=== PATIENT | female | born 1995 | race Hispanic/Latino ===

== ENCOUNTER 2024-10-05 22:16 | Emergency (ER) | payer OTHER ==
[2024-10-05] MEDS ORDERED: Acetaminophen 325 MG TAB ONE (22:29)
== END 2024-10-05 23:50 | disposition home or self-care (01) ==
LOC: CSHERS 22:16
DX: M25.561 Pain in right knee (principal); X50.1XXA Overexertion from prolonged static or awkward postures, initial encounter

== ENCOUNTER 2024-10-14 18:00 | Inpatient (IN) | payer OTHER ==
[2024-10-15] MEDS: Lactated Ringer's 1,000 ML IV SCH (07:30)
[2024-10-15] MEDS ORDERED: Misoprostol 200 MCG TAB PR PRN (07:45)
[2024-10-15] MEDS ORDERED: Ondansetron PF 4 MG/2 ML Vial IVP PRN ×2 (07:45→18:53)
[2024-10-15] MEDS ORDERED: Methylergonovine 0.2 MG/ML VIAL IM PRN (07:45)
[2024-10-15] MEDS ORDERED: Carboprost 250 MCG/ML AMP IM PRN (07:45)
[2024-10-15] MEDS ORDERED: hydrALAZINE 20 MG/ML VIAL SLOW IVP PRN (07:45)
[2024-10-15] MEDS ORDERED: Tranexamic Acid 1,000 MG/10 ML VIAL IVP PRN (07:45)
[2024-10-15] MEDS ORDERED: Diphenoxylate HCl/Atropine Tablet PO PRN (07:45)
[2024-10-15] MEDS ORDERED: Promethazine HCl 25 MG/ML VIAL IM PRN ×2 (07:45→18:53)
[2024-10-15 08:01] VITALS: BMI 30.6
[2024-10-15 08:09] LABS: Hematocrit 31.7 % (34.9-44.5); Hemoglobin 9.9 g/dL (12.0-15.5); Mean Corpuscular HGB CONC 31.2 g/dL (32.0-36.0); Mean Corpuscular Hemoglobin 27.3 pg (27.0-33.0); Mean Corpuscular Volume 87.6 fL (81.6-98.3); Mean Platelet Volume 12.9 fL (7.4-10.4); Platelet Count 150 10x3/uL (150-450); RBC Distribution Width 13.8 % (11.5-14.5); Red Blood Cell (RBC) Count 3.62 10x6/uL (3.90-5.03); White Blood Cell (WBC) Count 7.6 10x3/uL (3.5-10.5)
[2024-10-15 08:43] LABS: HBsAg Index 0.21 S/CO (0-0.99); Hep B Surf Ag - L&D Non-Reactive S/CO (NonReactive)
[2024-10-15 08:45] LABS: Syphilis Antibody Nonreactive (Nonreactive); Syphilis Antibody Index 0.04 S/CO (<1.00 Non-Reactive)
[2024-10-15] MEDS: Misoprostol 100 MCG TAB VAG SCH (09:13)
[2024-10-15] MEDS ORDERED: Lidocaine 1% (PF) 30 ML VIAL SC PRN (11:01)
[2024-10-15] MEDS ORDERED: Oxytocin 30 units/NS 500 ML 500 ML IV SCH (11:15)
[2024-10-15] MEDS: Misoprostol 100 MCG TAB ONE (17:39)
[2024-10-15] MEDS: fentaNYL/Ropivacaine Epidural 100 ML ONE (18:06)
[2024-10-15] MEDS ORDERED: diphenhydrAMINE 50 MG/ML VIAL IVP PRN (18:53)
[2024-10-15] MEDS ORDERED: Naloxone HCl 0.4 mg/ml Vial IVP PRN ×2 (18:53)
[2024-10-15] MEDS ORDERED: Lactated Ringer's 500 ML IV PRN (18:53)
[2024-10-15] MEDS ORDERED: ePHEDrine Sulfate 50 MG/10 ML VIAL SLOW IVP PRN (18:53)
[2024-10-15] MEDS ORDERED: Moisturizing Cream (Eucerin) 113 GM JAR TOP PRN (18:53)
[2024-10-15] MEDS ORDERED: fentaNYL 2 mcg/Ropivacaine 0.2% Epidural 100 ML CADD EPIDURAL SCH (19:00)
[2024-10-15] MEDS ORDERED: Communication Order-Pharmacy FS SCH (19:00)
[2024-10-15] MEDS: Oxytocin 30 units/NS 500 ML 500 ML IV SCH (20:53)
[2024-10-15] MEDS ORDERED: Bisacodyl 10 MG SUPP PR PRN (21:11)
[2024-10-15] MEDS ORDERED: Boostrix 0.5 ML (Tdap) VIAL (>/=7 yrs of age) IM ONE (21:11)
[2024-10-15] MEDS ORDERED: Milk Of Magnesia 30 ML UDCUP PO PRN (21:11)
[2024-10-15] MEDS: Acetaminophen 325 MG TAB PO PRN (21:14)
[2024-10-16] MEDS: Ibuprofen 800 MG TAB PO SCH ×2 (00:10→08:12)
[2024-10-16] MEDS: Ferrous Sulfate 325 MG TAB PO SCH (08:11)
[2024-10-16] MEDS: Docusate 100 MG CAP PO SCH (08:11)
[2024-10-16 19:55] VITALS: BP 117/70; TEMP 98.4
== END 2024-10-16 22:20 | disposition home or self-care (01) | DRG 807 ==
LOC: CSHLD 10-15 06:46 → CSHPP 10-15 23:09
PROVIDERS: ADMIT Emergency Medicine; ATTEND Emergency Medicine
PROC: 10907ZC Drainage of Amniotic Fluid, Therapeutic from Products of Conception, Via Natural or Artificial Opening (ICD-10-PCS; principal; 2024-10-15)
PROC: 10E0XZZ Delivery of Products of Conception, External Approach (ICD-10-PCS; 2024-10-15)
DX: O99.62 Diseases of the digestive system complicating childbirth (principal); Z37.0 Single live birth; K21.9 Gastro-esophageal reflux disease without esophagitis; Z3A.39 39 weeks gestation of pregnancy; Z79.82 Long term (current) use of aspirin; Z79.899 Other long term (current) drug therapy; O69.81X0 Labor and delivery complicated by cord around neck, without compression, not applicable or unspecified
CPT/HCPCS: 36415; 51702; 85027; 86780; 86850; 86900; 86901; 87340; J2590; J7120

== ENCOUNTER 2025-06-16 11:37 | Outpatient (CLI) | payer OTHER ==
[2025-06-16 12:13] LABS: #Basophils 0.03 10x3/uL (0.0-0.2); #Eosinophils 0.03 10x3/uL (0.0-0.5); #Monocytes 0.28 10x3/uL (0.0-1.1); #Neutrophils 3.36 10x3/uL (1.5-8.4); %Basophils 0.5 % (0.0-2.0); %Eosinophils 0.5 % (0.0-6.0); %Lymphocytes 40.8 % (18.0-47.0); %Monocytes 4.5 % (0.0-10.0); %Neutrophils 53.4 % (40.0-75.0); Hematocrit 36.3 % (34.9-44.5); Hemoglobin 12.2 g/dL (12.0-15.5); Mean Corpuscular Hemoglobin 30.6 pg (27.0-33.0); Mean Corpuscular Volume 91.0 fL (81.6-98.3); Platelet Count 235 10x3/uL (150-450); Red Blood Cell (RBC) Count 3.99 10x6/uL (3.90-5.03); White Blood Cell (WBC) Count 6.28 10x3/uL (3.5-10.5)
[2025-06-16 12:30] LABS: BHCG - Serum Negative (NEGATIVE); Pregs Control Background? CLEAR/WHITE (CLR/WHITE); Pregs Control Bar Appear? YES (CONTROL BAR)
[2025-06-16 12:32] LABS: Anion Gap 12 mmol/L (10-20); BUN (Urea Nitrogen) 15 mg/dL (7.0-18.7); Calc. Creatinine Clearance 0 mL/min (70-130); Calcium 9.1 mg/dL (7.8-10.44); Carbon Dioxide 26 mmol/L (22-29); Chloride 108 mmol/L (98-107); Glucose 94 mg/dL (70-105); Potassium 4.1 mmol/L (3.5-5.1); Sodium 142 mmol/L (136-145)
== END 2025-06-16 11:38 | disposition home or self-care (01) ==
LOC: CSHLAB 11:37
PROVIDERS: ATTEND Specialist
DX: Z01.812 Encounter for preprocedural laboratory examination (principal); D17.1 Benign lipomatous neoplasm of skin and subcutaneous tissue of trunk
CPT/HCPCS: 80048; 84703; 85025

== ENCOUNTER 2025-06-17 10:28 | Day surgery (SDC) | payer OTHER ==
[2025-06-16 11:30] VITALS: BMI 24.3
[2025-06-17] MEDS ORDERED: Bupivacaine/Epinephrine 0.25% 30 ML VIAL ONE (10:54)
[2025-06-17] MEDS ORDERED: Lidocaine 2% MPF 10 ML AMP (For Epidural Use) ONE (10:54)
[2025-06-17] MEDS ORDERED: Ketorolac Tromethamine 30 MG (1 mL) VIAL ONE (10:54)
[2025-06-17] MEDS ORDERED: Acetaminophen 500 MG TAB ONE (10:55)
[2025-06-17] MEDS ORDERED: CEFAZOLIN 2 GM VIAL ONE (11:15)
[2025-06-17] MEDS ORDERED: PROPOFOL 20 ML ONE (11:50)
[2025-06-17] MEDS ORDERED: Famotidine/PF 20 mg/2ml Vial ONE (11:53)
[2025-06-17] MEDS ORDERED: Ondansetron PF 4 MG/2 ML Vial ONE (11:53)
== END 2025-06-17 14:35 | disposition home or self-care (01) ==
LOC: CSHSDC 10:28
PROVIDERS: ATTEND Specialist
PROC: 0JB70ZZ Excision of Back Subcutaneous Tissue and Fascia, Open Approach (ICD-10-PCS; principal; 2025-06-17)
DX: M79.9 Soft tissue disorder, unspecified (principal)
CPT/HCPCS: 88304; J1308; J1885; J2405; J2704; J3010